=== PATIENT | male | born 1955 | race Caucasian/White ===

== ENCOUNTER 2017-07-12 21:24 | Inpatient (IN) | payer MEDICAID ==
[~2017-07-12] VITALS: Ht 182.9 cm; Wt 111.0 kg
[~2017-07-12 21:24] MED LIST: CITA10TA71 PO; LISI-604 PO; LORA10TA7 PO; MONT10TA21 PO; PANT-47 PO; PRED5TAB PO; SPIIN IH; UMEC1DIS INH
[2017-07-12] MEDS ORDERED: acetaminophen 325mg tablet PO STA (21:53)
[2017-07-12] MEDS ORDERED: levoFLOXACIN-Levaquin 750MG/D5 150 ML IV ONE (21:55)
[2017-07-12] MEDS ORDERED: vancomycin/NS 1 GM ADD-VANTAGE 250 ML IV ONE (21:55)
[2017-07-12] MEDS ORDERED: normal saline 1000ML IV soln IV ONE (21:55)
[2017-07-12] MEDS ORDERED: morphine 4 MG/ML inj SYRINge IV ONE (22:10)
[2017-07-12] MEDS ORDERED: NORepinephrine 1 mg/ml inj IV ONE (23:00)
[2017-07-12] MEDS ORDERED: normal saline 1000ml 1,000 ML IV ONE (23:25)
[2017-07-12 23:41] LABS: BASOPHILS % (AUTO) 0.1 % (0-1); EOSINOPHILS % (AUTO) 0 % (0-6); HEMATOCRIT 28.8 % (42.0-52.0); HEMOGLOBIN 9.6 g/dl (14.0-17.9); LYMPHOCYTES # (AUTO) 1.1 X10'3 (1.1-4.8); MEAN CORPUSCULAR HEMOGLOBIN 28.2 PG (27.0-31.0); MEAN CORPUSCULAR HGB CONC 33.3 % (33.0-36.5); MEAN CORPUSCULAR VOLUME 84.5 FL (78-98); MEAN PLATELET VOLUME 7.8 FL (7.4-10.4); MONOCYTES # (AUTO) 0.1 X10'3 (0-0.9); MONOCYTES % (AUTO) 1.2 % (2-12); NEUTROPHILS % (AUTO) 87.7 % (42-75); PLATELET COUNT 198 X10'3 (140-440); RED BLOOD COUNT 3.41 X10'6 (4.70-6.10); RED CELL DISTRIBUTION WIDTH 17.5 % (11.5-14.5); WHITE BLOOD COUNT 10.2 X10'3 (4.5-11.0)
[2017-07-12 23:54] LABS: INR 1.1 INR; PARTIAL THROMBOPLASTIN TIME 29 SECONDS (22-32); PROTHROMBIN TIME 11.2 SECONDS (9.0-12.0)
[2017-07-13] VITALS (27 sets, daily range): BP systolic 63–128; BP diastolic 55–82
[2017-07-13] LABS: ALANINE AMINOTRANSFERASE 129 U/L (12-78); ALBUMIN 2.1 G/DL (3.4-5.0); ALBUMIN/GLOBULIN RATIO 0.6 (1.1-1.5); ALKALINE PHOSPHATASE 72 IU/L (46-116); ANION GAP 7 (8-16); ASPARTATE AMINO TRANSFERASE 91 U/L (10-37); BILIRUBIN,TOTAL 0.4 MG/DL (0.1-1.0); BLOOD UREA NITROGEN 34 MG/DL (7-18); BUN/CREATININE RATIO 16.6 (5.4-32.0); CALCIUM 8.5 MG/DL (8.5-10.1); CHLORIDE 107 MMOL/L (99-107); CREATININE 2.05 MG/DL (0.60-1.10); GLUCOSE 125 MG/DL (70-104); MAGNESIUM 1.6 MG/DL (1.5-2.4); POTASSIUM 4.8 MMOL/L (3.5-5.1); SODIUM 144 MMOL/L (135-145); TOTAL CARBON DIOXIDE 30.2 MMOL/L (24-32); TOTAL PROTEIN 5.7 G/DL (6.4-8.2); eGFR 33 ML/MIN
[2017-07-13] MEDS: NORepinephrine 8mg/ 250ml NS 250 ML IV SCH ×2 (00:04→05:55)
[2017-07-13] MEDS ORDERED: hydrocortisone sod succ/PF 100mg/2ml inj. IV STA (00:19)
[2017-07-13 01:20] LABS: CLARITY,URINE CLOUDY (Clear); COLOR,URINE YELLOW (Yellow); GLUCOSE, URINE NEGATIVE (Neg); KETONES,URINE TRACE mg/dl (Neg); LEUKOCYTE ESTERASE ,URINE TRACE (Neg); OCCULT BLOOD,URINE LARGE (Neg); PROTEIN,URINE >=300 mg/dl (Neg); UROBILINOGEN,URINE 0.2 E.U/dL (0.2-1.0)
[2017-07-13] MEDS ORDERED: vasopressin inj. 60 UNIT in normal saline 100ml IV soln 97 ML IV SCH (01:20)
[2017-07-13] MEDS ORDERED: vasoPRESSIN 20 units/ml inj. ONE (01:26)
[2017-07-13] MEDS ORDERED: normal saline 100ml IV soln 100 ML ONE (01:26)
[2017-07-13 01:27] LABS: NITRITES, URINE NEGATIVE (Neg); UA COLLECTION TYPE FOLEY CATH
[2017-07-13 01:28] LABS: WBC,URINE 30-50 /HPF (0-4)
[2017-07-13 01:29] LABS: BACTERIA,URINE FEW /HPF (Neg); SQUAMOUS EPITHELIAL CELL,UR FEW /LPF (FEW); WBC CLUMPS,URINE FEW /HPF (NEGATIVE)
[2017-07-13] MEDS: K, MAG and/or Phos replacement - Verify level? MC SCH ×2 (01:35→08:00)
[2017-07-13] MEDS ORDERED: potassium Cl 20 mEq SR tablet PO PRN ×2 (01:35)
[2017-07-13] MEDS ORDERED: ondansetron/PF 4mg/2ml inj IV PRN (01:35)
[2017-07-13] MEDS ORDERED: acetaminophen 325mg tablet PO PRN ×2 (01:35)
[2017-07-13] MEDS ORDERED: magnesium hydroxide 30ml (MOM) UD suspension PO PRN (01:35)
[2017-07-13] MEDS ORDERED: ipratropium 0.5 MG/2.5ML nebule NEB PRN (01:35)
[2017-07-13] MEDS ORDERED: DOCU-28 PO (03:35)
[2017-07-13] MEDS ORDERED: GABA-532 PO (03:35)
[2017-07-13] MEDS ORDERED: OXYC10TA47 PO (03:35)
[2017-07-13] MEDS ORDERED: FURO-150 PO (03:35)
[2017-07-13] MEDS ORDERED: SENN-161 PO (03:35)
[2017-07-13] MEDS: normal saline 1000ml 1,000 ML IV SCH ×4 (03:44→21:32)
[2017-07-13 04:22] LABS: HEMOGLOBIN A1C 7.5 % (4.5-6.2)
[2017-07-13] MEDS ORDERED: morphine 4 MG/ML inj SYRINge ONE (04:28)
[2017-07-13 04:41] LABS: LACTIC SEPSIS 2.3 MMOL/L (0.4-2.0)
[2017-07-13 04:55] LABS: % IRON SATURATION 6 % (11-46); IRON 10 UG/DL (53-167); TOTAL IRON BINDING CAPACITY 155 UG/DL (259-388)
[2017-07-13] MEDS: morphine 4 MG/ML inj SYRINge IV PRN ×3 (04:56→08:29)
[2017-07-13] MEDS ORDERED: glucagon, human recombinant 1mg kit SUBCUT PRN (05:35)
[2017-07-13] MEDS ORDERED: dextrose 50%-water 50ml dispensing syringe IV PRN ×2 (05:35)
[2017-07-13] MEDS ORDERED: dextrose ORAL solution 15 GM/59 ML bottle PO PRN ×2 (05:35)
[2017-07-13] MEDS ORDERED: MESSAGE TO PHARMACY PO ONE (05:35)
[2017-07-13] MEDS ORDERED: famotidine/PF 10 mg/ml inj IV SCH (08:00)
[2017-07-13] MEDS ORDERED: ipratropium/albuterol 3ml nebule IH SCH (08:00)
[2017-07-13] MEDS: ipratropium 0.5 MG/2.5ML nebule IH SCH ×3 (08:00→20:58)
[2017-07-13] MEDS ORDERED: vancomycin/NS 1 GM ADD-VANTAGE 250 ML IV SCH (08:00)
[2017-07-13] MEDS: docusate sod 100mg capsule PO SCH ×2 (08:28→20:12)
[2017-07-13] MEDS: montelukast 10mg tablet PO SCH (08:28)
[2017-07-13] MEDS: loratadine 10mg tablet PO SCH (08:28)
[2017-07-13] MEDS: pantoprazole 40mg Tablet.DR PO SCH (08:28)
[2017-07-13] MEDS: predniSONE 5mg tablet PO SCH ×2 (08:29→20:14)
[2017-07-13] MEDS: CITALOpram 10mg tablet PO SCH (08:29)
[2017-07-13] MEDS: insulin Lispro (HumaLOG) vial - multi-dose SQ SCH ×3 (10:04→20:19)
[2017-07-13] MEDS ORDERED: morphine/NS 5 mg/ml CADD 100 ML IV SCH (11:00)
[2017-07-13 11:43] LABS: BASOPHILS % (AUTO) 0 % (0-1); EOSINOPHILS % (AUTO) 0.2 % (0-6); HEMATOCRIT 28.2 % (42.0-52.0); HEMOGLOBIN 9.6 g/dl (14.0-17.9); LYMPHOCYTES # (AUTO) 0.2 X10'3 (1.1-4.8); LYMPHOCYTES % (AUTO) 1.2 % (21-51); MEAN CORPUSCULAR HEMOGLOBIN 28.4 PG (27.0-31.0); MEAN CORPUSCULAR VOLUME 83.7 FL (78-98); MEAN PLATELET VOLUME 7.7 FL (7.4-10.4); MONOCYTES # (AUTO) 0.2 X10'3 (0-0.9); MONOCYTES % (AUTO) 1.5 % (2-12); NEUTROPHILS # (AUTO) 13.8 X10'3 (1.8-7.7); NEUTROPHILS % (AUTO) 97.1 % (42-75); PLATELET COUNT 215 X10'3 (140-440); RED BLOOD COUNT 3.37 X10'6 (4.70-6.10); WHITE BLOOD COUNT 14.2 X10'3 (4.5-11.0)
[2017-07-13 12:09] LABS: ANISOCYTOSIS 2+; PLATELET ESTIMATE NORMAL; TOTAL CELLS COUNTED 100
[2017-07-13 12:10] LABS: TOXIC GRANULATION 1+
[2017-07-13] MEDS: ipratropium/albuterol 3ml nebule NEB SCH ×2 (12:24→19:00)
[2017-07-13 17:01] LABS: TOTAL PROTEIN,URINE RANDOM 92.3 MG/DL
[2017-07-13] MEDS: triamcinolone acet 0.1% cream 15gm TP SCH (20:12)
[2017-07-13] MEDS: gabapentin 300mg capsule PO SCH (20:12)
[2017-07-13] MEDS: lactobacillus rhamnosus 10,000 MMU CELLS/CAPSULE PO SCH (20:12)
[2017-07-13] MEDS: sodium ferric gluc complex inj 125 MG in normal saline 100ml IV soln 100 ML IV SCH (20:13)
[2017-07-13] MEDS: insulin glargine (Lantus) pen - multi-dose SQ SCH (21:32)
[2017-07-13] MEDS: MORPHINE CADD 5 MG/ML 50ML IV SCH (23:00)
[2017-07-14] VITALS (25 sets, daily range): BP systolic 76–130; BP diastolic 58–90
[2017-07-14] MEDS: MORPHINE CADD 5 MG/ML 50ML IV SCH ×12 (01:00→23:00)
[2017-07-14 02:54] LABS: BASOPHILS # (AUTO) 0.1 X10'3 (0-0.2); BASOPHILS % (AUTO) 1.2 % (0-1); EOSINOPHILS % (AUTO) 0.2 % (0-6); HEMATOCRIT 25.2 % (42.0-52.0); HEMOGLOBIN 8.6 g/dl (14.0-17.9); LYMPHOCYTES # (AUTO) 0.3 X10'3 (1.1-4.8); LYMPHOCYTES % (AUTO) 2.7 % (21-51); MEAN CORPUSCULAR HEMOGLOBIN 28.6 PG (27.0-31.0); MEAN CORPUSCULAR VOLUME 84.3 FL (78-98); MEAN PLATELET VOLUME 7.1 FL (7.4-10.4); MONOCYTES # (AUTO) 0.2 X10'3 (0-0.9); MONOCYTES % (AUTO) 2.2 % (2-12); NEUTROPHILS # (AUTO) 9.2 X10'3 (1.8-7.7); NEUTROPHILS % (AUTO) 93.7 % (42-75); PLATELET COUNT 143 X10'3 (140-440); RED BLOOD COUNT 2.99 X10'6 (4.70-6.10); RED CELL DISTRIBUTION WIDTH 17.4 % (11.5-14.5); WHITE BLOOD COUNT 9.8 X10'3 (4.5-11.0)
[2017-07-14] MEDS: ipratropium 0.5 MG/2.5ML nebule IH SCH ×4 (02:55→19:48)
[2017-07-14 03:05] LABS: INR 1.1 INR; PARTIAL THROMBOPLASTIN TIME 34 SECONDS (22-32); PROTHROMBIN TIME 11.5 SECONDS (9.0-12.0)
[2017-07-14 03:08] LABS: ALANINE AMINOTRANSFERASE 108 U/L (12-78); ALBUMIN 1.6 G/DL (3.4-5.0); ALBUMIN/GLOBULIN RATIO 0.4 (1.1-1.5); ALKALINE PHOSPHATASE 59 IU/L (46-116); ANION GAP 5 (8-16); ASPARTATE AMINO TRANSFERASE 61 U/L (10-37); BILIRUBIN,TOTAL 0.2 MG/DL (0.1-1.0); BLOOD UREA NITROGEN 34 MG/DL (7-18); BUN/CREATININE RATIO 24.3 (5.4-32.0); CALCIUM 8.9 MG/DL (8.5-10.1); CHLORIDE 108 MMOL/L (99-107); GLUCOSE 113 MG/DL (70-104); MAGNESIUM 1.7 MG/DL (1.5-2.4); PHOSPHORUS 3.2 MG/DL (2.3-4.5); POTASSIUM 4.3 MMOL/L (3.5-5.1); SODIUM 142 MMOL/L (135-145); TOTAL CARBON DIOXIDE 28.8 MMOL/L (24-32); TOTAL PROTEIN 5.3 G/DL (6.4-8.2); eGFR 51 ML/MIN
[2017-07-14 03:21] LABS: NUCLEATED RED BLOOD CELLS 1 /100WBC (0-0); TOTAL CELLS COUNTED 100
[2017-07-14 03:22] LABS: ANISOCYTOSIS 1+; PLATELET ESTIMATE NORMAL; TOXIC GRANULATION 1+
[2017-07-14] MEDS: normal saline 1000ml 1,000 ML IV SCH ×3 (04:10→17:31)
[2017-07-14] MEDS: K, MAG and/or Phos replacement - Verify level? MC SCH (08:00)
[2017-07-14] MEDS: furosemide 20MG tablet PO SCH (08:00)
[2017-07-14] MEDS: lisinopril 5mg tablet PO SCH (08:00)
[2017-07-14] MEDS: NORepinephrine 8mg/ 250ml NS 250 ML IV SCH (08:22)
[2017-07-14] MEDS: enoxaparin 40mg/0.4ml syringe SUBCUT SCH (08:42)
[2017-07-14] MEDS: loratadine 10mg tablet PO SCH (08:43)
[2017-07-14] MEDS: lactobacillus rhamnosus 10,000 MMU CELLS/CAPSULE PO SCH ×2 (08:43→19:36)
[2017-07-14] MEDS: CITALOpram 10mg tablet PO SCH (08:43)
[2017-07-14] MEDS: predniSONE 5mg tablet PO SCH ×2 (08:43→19:36)
[2017-07-14] MEDS: triamcinolone acet 0.1% cream 15gm TP SCH ×2 (08:43→19:37)
[2017-07-14] MEDS: pantoprazole 40mg Tablet.DR PO SCH (08:43)
[2017-07-14] MEDS: montelukast 10mg tablet PO SCH (08:44)
[2017-07-14] MEDS: sennosides 8.6mg tablet PO SCH (08:44)
[2017-07-14] MEDS: docusate sod 100mg capsule PO SCH ×2 (08:45→19:37)
[2017-07-14] MEDS: sodium ferric gluc complex inj 125 MG in normal saline 100ml IV soln 100 ML IV SCH (08:47)
[2017-07-14] MEDS: insulin Lispro (HumaLOG) vial - multi-dose SQ SCH ×3 (08:54→20:42)
[2017-07-14] MEDS: oseltamivir phos 75mg capsule PO SCH (19:37)
[2017-07-14] MEDS: insulin glargine (Lantus) pen - multi-dose SQ SCH (20:41)
[2017-07-14] MEDS: gabapentin 300mg capsule PO SCH (20:42)
[2017-07-14] MEDS ORDERED: levoFLOXACIN-Levaquin 750MG/D5 150 ML IV SCH (21:00)
[2017-07-15] VITALS (30 sets, daily range): BP systolic 100–143; BP diastolic 68–99
[2017-07-15] MEDS: MORPHINE CADD 5 MG/ML 50ML IV SCH ×12 (01:00→23:00)
[2017-07-15 02:25] LABS: BASOPHILS # (AUTO) 0.1 X10'3 (0-0.2); BASOPHILS % (AUTO) 0.6 % (0-1); EOSINOPHILS # (AUTO) 0.1 X10'3 (0-0.9); EOSINOPHILS % (AUTO) 1.3 % (0-6); HEMATOCRIT 23.3 % (42.0-52.0); HEMOGLOBIN 7.9 g/dl (14.0-17.9); LYMPHOCYTES # (AUTO) 0.2 X10'3 (1.1-4.8); LYMPHOCYTES % (AUTO) 2.1 % (21-51); MEAN CORPUSCULAR HEMOGLOBIN 28.5 PG (27.0-31.0); MEAN CORPUSCULAR VOLUME 83.8 FL (78-98); MEAN PLATELET VOLUME 7.3 FL (7.4-10.4); MONOCYTES # (AUTO) 0.2 X10'3 (0-0.9); MONOCYTES % (AUTO) 2.3 % (2-12); NEUTROPHILS # (AUTO) 7.5 X10'3 (1.8-7.7); NEUTROPHILS % (AUTO) 93.7 % (42-75); PLATELET COUNT 151 X10'3 (140-440); RED BLOOD COUNT 2.78 X10'6 (4.70-6.10); RED CELL DISTRIBUTION WIDTH 17.2 % (11.5-14.5)
[2017-07-15 02:41] LABS: INR 1.1 INR; PARTIAL THROMBOPLASTIN TIME 40 SECONDS (22-32)
[2017-07-15 02:42] LABS: ALANINE AMINOTRANSFERASE 117 U/L (12-78); ALBUMIN 1.4 G/DL (3.4-5.0); ALBUMIN/GLOBULIN RATIO 0.4 (1.1-1.5); ALKALINE PHOSPHATASE 74 IU/L (46-116); ANION GAP 5 (8-16); ASPARTATE AMINO TRANSFERASE 81 U/L (10-37); BILIRUBIN,TOTAL 0.3 MG/DL (0.1-1.0); BLOOD UREA NITROGEN 27 MG/DL (7-18); CALCIUM 8.9 MG/DL (8.5-10.1); CHLORIDE 109 MMOL/L (99-107); CREATININE 1.04 MG/DL (0.60-1.10); GLUCOSE 140 MG/DL (70-104); MAGNESIUM 1.6 MG/DL (1.5-2.4); PHOSPHORUS 3.2 MG/DL (2.3-4.5); POTASSIUM 4.7 MMOL/L (3.5-5.1); SODIUM 142 MMOL/L (135-145); TOTAL PROTEIN 5.4 G/DL (6.4-8.2); eGFR 72 ML/MIN
[2017-07-15 02:59] LABS: VANCOMYCIN,TROUGH 27.4 UG/ML (6.0-14.0)
[2017-07-15] MEDS: normal saline 1000ml 1,000 ML IV SCH ×2 (03:22→07:17)
[2017-07-15] MEDS: ipratropium 0.5 MG/2.5ML nebule IH SCH ×4 (03:27→20:58)
[2017-07-15] MEDS ORDERED: VANCOMYCIN LEVEL IV ONE (03:30)
[2017-07-15] MEDS: K, MAG and/or Phos replacement - Verify level? MC SCH (08:00)
[2017-07-15] MEDS: sodium ferric gluc complex inj 125 MG in normal saline 100ml IV soln 100 ML IV SCH (08:29)
[2017-07-15] MEDS: triamcinolone acet 0.1% cream 15gm TP SCH ×2 (08:29→19:55)
[2017-07-15] MEDS: predniSONE 5mg tablet PO SCH ×2 (08:30→19:55)
[2017-07-15] MEDS: pantoprazole 40mg Tablet.DR PO SCH (08:30)
[2017-07-15] MEDS: docusate sod 100mg capsule PO SCH ×2 (08:31→19:54)
[2017-07-15] MEDS: oseltamivir phos 75mg capsule PO SCH (08:31)
[2017-07-15] MEDS: montelukast 10mg tablet PO SCH (08:31)
[2017-07-15] MEDS: loratadine 10mg tablet PO SCH (08:31)
[2017-07-15] MEDS: lactobacillus rhamnosus 10,000 MMU CELLS/CAPSULE PO SCH ×2 (08:32→19:54)
[2017-07-15] MEDS: CITALOpram 10mg tablet PO SCH (08:32)
[2017-07-15] MEDS: lisinopril 5mg tablet PO SCH (08:32)
[2017-07-15] MEDS: sennosides 8.6mg tablet PO SCH (08:32)
[2017-07-15] MEDS: furosemide 20MG tablet PO SCH (08:32)
[2017-07-15] MEDS: enoxaparin 40mg/0.4ml syringe SUBCUT SCH (08:33)
[2017-07-15] MEDS: insulin Lispro (HumaLOG) vial - multi-dose SQ SCH ×3 (08:51→22:04)
[2017-07-15] MEDS ORDERED: NORepinephrine 8mg/ 250ml NS 250 ML IV SCH (12:25)
[2017-07-15] MEDS ORDERED: vasopressin inj. 60 UNIT in normal saline 100ml IV soln 97 ML IV SCH (12:25)
[2017-07-15] MEDS ORDERED: cefepime 1GM/NS ADD-VANTAGE 100 ML IV SCH (12:50)
[2017-07-15 13:27] LABS: HEP A AB, IGM Negative (Negative); HEP B CORE AB, IGM Negative (Negative); HEPATITIS C ANTIBODY <0.1 s/co ratio (0.0-0.9)
[2017-07-15] MEDS: cefepime inj. 1 GM in dextrose 5%-water 50ml 100 ML IV SCH (13:45)
[2017-07-15] MEDS ORDERED: vancomycin/NS 1 GM ADD-VANTAGE 250 ML IV SCH (16:00)
[2017-07-15] MEDS: gabapentin 300mg capsule PO SCH (22:01)
[2017-07-15] MEDS: insulin glargine (Lantus) pen - multi-dose SQ SCH (22:03)
[2017-07-16] VITALS (11 sets, daily range): BP systolic 101–135; BP diastolic 68–94
[2017-07-16] MEDS: MORPHINE CADD 5 MG/ML 50ML IV SCH ×12 (01:00→23:00)
[2017-07-16 03:05] LABS: BASOPHILS % (AUTO) 0 % (0-1); EOSINOPHILS # (AUTO) 0.1 X10'3 (0-0.9); EOSINOPHILS % (AUTO) 1.3 % (0-6); HEMOGLOBIN 8.9 g/dl (14.0-17.9); LYMPHOCYTES # (AUTO) 0.2 X10'3 (1.1-4.8); LYMPHOCYTES % (AUTO) 3.6 % (21-51); MEAN CORPUSCULAR HEMOGLOBIN 28.5 PG (27.0-31.0); MEAN CORPUSCULAR VOLUME 83.8 FL (78-98); MEAN PLATELET VOLUME 7.1 FL (7.4-10.4); MONOCYTES # (AUTO) 0.3 X10'3 (0-0.9); NEUTROPHILS % (AUTO) 91.1 % (42-75); PLATELET COUNT 159 X10'3 (140-440); RED BLOOD COUNT 3.11 X10'6 (4.70-6.10); RED CELL DISTRIBUTION WIDTH 16.7 % (11.5-14.5); WHITE BLOOD COUNT 6.6 X10'3 (4.5-11.0)
[2017-07-16 03:17] LABS: PARTIAL THROMBOPLASTIN TIME 32 SECONDS (22-32); PROTHROMBIN TIME 10.5 SECONDS (9.0-12.0)
[2017-07-16 03:25] LABS: ALANINE AMINOTRANSFERASE 135 U/L (12-78); ALBUMIN 1.5 G/DL (3.4-5.0); ALBUMIN/GLOBULIN RATIO 0.4 (1.1-1.5); ALKALINE PHOSPHATASE 118 IU/L (46-116); ANION GAP 5 (8-16); ASPARTATE AMINO TRANSFERASE 87 U/L (10-37); BILIRUBIN,TOTAL 0.3 MG/DL (0.1-1.0); BLOOD UREA NITROGEN 26 MG/DL (7-18); BUN/CREATININE RATIO 27.4 (5.4-32.0); CALCIUM 8.9 MG/DL (8.5-10.1); CHLORIDE 108 MMOL/L (99-107); CREATININE 0.95 MG/DL (0.60-1.10); GLUCOSE 124 MG/DL (70-104); MAGNESIUM 1.4 MG/DL (1.5-2.4); PHOSPHORUS 3.4 MG/DL (2.3-4.5); POTASSIUM 4.2 MMOL/L (3.5-5.1); SODIUM 144 MMOL/L (135-145); TOTAL CARBON DIOXIDE 30.8 MMOL/L (24-32); TOTAL PROTEIN 5.5 G/DL (6.4-8.2); eGFR 80 ML/MIN
[2017-07-16] MEDS: ipratropium 0.5 MG/2.5ML nebule IH SCH ×4 (04:38→20:16)
[2017-07-16] MEDS: lactobacillus rhamnosus 10,000 MMU CELLS/CAPSULE PO SCH ×2 (07:42→20:16)
[2017-07-16] MEDS: furosemide 20MG tablet PO SCH (07:42)
[2017-07-16] MEDS: levoFLOXACIN 750MG TABLET PO SCH (07:42)
[2017-07-16] MEDS: loratadine 10mg tablet PO SCH (07:43)
[2017-07-16] MEDS: lisinopril 5mg tablet PO SCH (07:43)
[2017-07-16] MEDS: predniSONE 5mg tablet PO SCH ×2 (07:43→20:15)
[2017-07-16] MEDS: CITALOpram 10mg tablet PO SCH (07:44)
[2017-07-16] MEDS: docusate sod 100mg capsule PO SCH ×2 (07:46→20:15)
[2017-07-16] MEDS: montelukast 10mg tablet PO SCH (07:46)
[2017-07-16] MEDS: pantoprazole 40mg Tablet.DR PO SCH (07:46)
[2017-07-16] MEDS: sennosides 8.6mg tablet PO SCH (07:46)
[2017-07-16] MEDS: enoxaparin 40mg/0.4ml syringe SUBCUT SCH (07:47)
[2017-07-16] MEDS: K, MAG and/or Phos replacement - Verify level? MC SCH (08:00)
[2017-07-16] MEDS: cefepime inj. 1 GM in dextrose 5%-water 50ml 100 ML IV SCH (08:31)
[2017-07-16] MEDS: magnesium Cl slow-release 64mg tablet PO PRN ×2 (09:38→20:49)
[2017-07-16] MEDS: sodium ferric gluc complex inj 125 MG in normal saline 100ml IV soln 100 ML IV SCH (09:39)
[2017-07-16] MEDS: insulin Lispro (HumaLOG) vial - multi-dose SQ SCH ×3 (10:26→20:22)
[2017-07-16] MEDS: triamcinolone acet 0.1% cream 15gm TP SCH ×2 (13:42→20:17)
[2017-07-16] MEDS: gabapentin 300mg capsule PO SCH (20:15)
[2017-07-16] MEDS: insulin glargine (Lantus) pen - multi-dose SQ SCH (21:00)
[2017-07-17] MEDS: MORPHINE CADD 5 MG/ML 50ML IV SCH ×12 (01:00→23:00)
[2017-07-17 03:00] VITALS: BP 131/91
[2017-07-17] MEDS ORDERED: VANCOMYCIN LEVEL IV ONE (03:30)
[2017-07-17 03:31] LABS: BASOPHILS % (AUTO) 0 % (0-1); EOSINOPHILS % (AUTO) 0.7 % (0-6); HEMATOCRIT 30.8 % (42.0-52.0); HEMOGLOBIN 10.5 g/dl (14.0-17.9); LYMPHOCYTES # (AUTO) 0.2 X10'3 (1.1-4.8); LYMPHOCYTES % (AUTO) 3.4 % (21-51); MEAN CORPUSCULAR HEMOGLOBIN 28.5 PG (27.0-31.0); MEAN CORPUSCULAR HGB CONC 34.1 % (33.0-36.5); MEAN CORPUSCULAR VOLUME 83.7 FL (78-98); MEAN PLATELET VOLUME 6.9 FL (7.4-10.4); MONOCYTES # (AUTO) 0.1 X10'3 (0-0.9); MONOCYTES % (AUTO) 1.9 % (2-12); NEUTROPHILS # (AUTO) 6.2 X10'3 (1.8-7.7); PLATELET COUNT 182 X10'3 (140-440); RED BLOOD COUNT 3.68 X10'6 (4.70-6.10); RED CELL DISTRIBUTION WIDTH 16.7 % (11.5-14.5); WHITE BLOOD COUNT 6.6 X10'3 (4.5-11.0)
[2017-07-17] MEDS: ipratropium 0.5 MG/2.5ML nebule IH SCH ×4 (03:39→20:10)
[2017-07-17 03:44] LABS: INR 1.1 INR; PARTIAL THROMBOPLASTIN TIME 30 SECONDS (22-32); PROTHROMBIN TIME 10.9 SECONDS (9.0-12.0)
[2017-07-17 03:46] LABS: ALANINE AMINOTRANSFERASE 123 U/L (12-78); ALBUMIN 1.8 G/DL (3.4-5.0); ALBUMIN/GLOBULIN RATIO 0.4 (1.1-1.5); ALKALINE PHOSPHATASE 137 IU/L (46-116); ANION GAP 8 (8-16); ASPARTATE AMINO TRANSFERASE 50 U/L (10-37); BILIRUBIN,TOTAL 0.3 MG/DL (0.1-1.0); BLOOD UREA NITROGEN 28 MG/DL (7-18); BUN/CREATININE RATIO 25.9 (5.4-32.0); CALCIUM 9.1 MG/DL (8.5-10.1); CHLORIDE 106 MMOL/L (99-107); CREATININE 1.08 MG/DL (0.60-1.10); GLUCOSE 117 MG/DL (70-104); MAGNESIUM 1.6 MG/DL (1.5-2.4); PHOSPHORUS 3.5 MG/DL (2.3-4.5); SODIUM 146 MMOL/L (135-145); TOTAL CARBON DIOXIDE 32.2 MMOL/L (24-32); TOTAL PROTEIN 6.2 G/DL (6.4-8.2); VANCOMYCIN,TROUGH 6.3 UG/ML (6.0-14.0); eGFR 69 ML/MIN
[2017-07-17 06:00] VITALS: BP 139/93
[2017-07-17] MEDS: K, MAG and/or Phos replacement - Verify level? MC SCH (08:00)
[2017-07-17] MEDS: sennosides 8.6mg tablet PO SCH (08:31)
[2017-07-17] MEDS: loratadine 10mg tablet PO SCH (08:31)
[2017-07-17] MEDS: pantoprazole 40mg Tablet.DR PO SCH (08:31)
[2017-07-17] MEDS: lactobacillus rhamnosus 10,000 MMU CELLS/CAPSULE PO SCH ×2 (08:31→20:11)
[2017-07-17] MEDS: docusate sod 100mg capsule PO SCH ×2 (08:31→20:11)
[2017-07-17] MEDS: furosemide 20MG tablet PO SCH (08:32)
[2017-07-17] MEDS: predniSONE 5mg tablet PO SCH ×2 (08:32→20:11)
[2017-07-17] MEDS: lisinopril 5mg tablet PO SCH (08:32)
[2017-07-17] MEDS: montelukast 10mg tablet PO SCH (08:33)
[2017-07-17] MEDS: CITALOpram 10mg tablet PO SCH (08:33)
[2017-07-17] MEDS: triamcinolone acet 0.1% cream 15gm TP SCH ×2 (08:34→20:11)
[2017-07-17] MEDS: cefepime inj. 1 GM in dextrose 5%-water 50ml 50 ML IV SCH (08:35)
[2017-07-17] MEDS: enoxaparin 40mg/0.4ml syringe SUBCUT SCH (08:35)
[2017-07-17] MEDS: insulin Lispro (HumaLOG) vial - multi-dose SQ SCH ×3 (08:43→19:09)
[2017-07-17 09:39] LABS: OCCULT BLOOD STOOL NEGATIVE (Neg)
[2017-07-17 11:00] VITALS: BP 119/86
[2017-07-17 15:00] VITALS: BP 122/80
[2017-07-17 19:00] VITALS: BP 124/81
[2017-07-17] MEDS: gabapentin 300mg capsule PO SCH (20:11)
[2017-07-17] MEDS: insulin glargine (Lantus) pen - multi-dose SQ SCH (22:14)
[2017-07-17 23:00] VITALS: BP 105/72
[2017-07-18] MEDS: MORPHINE CADD 5 MG/ML 50ML IV SCH ×6 (01:00→11:00)
[2017-07-18 03:00] VITALS: BP 125/80
[2017-07-18] MEDS: ipratropium 0.5 MG/2.5ML nebule IH SCH ×4 (03:06→21:26)
[2017-07-18 05:27] LABS: BASOPHILS % (AUTO) 0.2 % (0-1); EOSINOPHILS # (AUTO) 0.1 X10'3 (0-0.9); EOSINOPHILS % (AUTO) 1.5 % (0-6); HEMATOCRIT 31.2 % (42.0-52.0); HEMOGLOBIN 10.5 g/dl (14.0-17.9); LYMPHOCYTES # (AUTO) 0.3 X10'3 (1.1-4.8); MEAN CORPUSCULAR HEMOGLOBIN 28.4 PG (27.0-31.0); MEAN CORPUSCULAR HGB CONC 33.6 % (33.0-36.5); MEAN CORPUSCULAR VOLUME 84.6 FL (78-98); MEAN PLATELET VOLUME 6.9 FL (7.4-10.4); MONOCYTES # (AUTO) 0.3 X10'3 (0-0.9); MONOCYTES % (AUTO) 4.4 % (2-12); NEUTROPHILS # (AUTO) 5.5 X10'3 (1.8-7.7); NEUTROPHILS % (AUTO) 88.9 % (42-75); PLATELET COUNT 190 X10'3 (140-440); RED BLOOD COUNT 3.69 X10'6 (4.70-6.10); RED CELL DISTRIBUTION WIDTH 16.9 % (11.5-14.5); WHITE BLOOD COUNT 6.2 X10'3 (4.5-11.0)
[2017-07-18 05:44] LABS: INR 1.1 INR; PARTIAL THROMBOPLASTIN TIME 28 SECONDS (22-32)
[2017-07-18 05:55] LABS: ALANINE AMINOTRANSFERASE 95 U/L (12-78); ALBUMIN 1.8 G/DL (3.4-5.0); ALBUMIN/GLOBULIN RATIO 0.4 (1.1-1.5); ALKALINE PHOSPHATASE 143 IU/L (46-116); ANION GAP 6 (8-16); ASPARTATE AMINO TRANSFERASE 41 U/L (10-37); BILIRUBIN,TOTAL 0.3 MG/DL (0.1-1.0); BLOOD UREA NITROGEN 28 MG/DL (7-18); BUN/CREATININE RATIO 27.2 (5.4-32.0); CHLORIDE 105 MMOL/L (99-107); CREATININE 1.03 MG/DL (0.60-1.10); GLUCOSE 242 MG/DL (70-104); MAGNESIUM 1.8 MG/DL (1.5-2.4); PHOSPHORUS 3.2 MG/DL (2.3-4.5); POTASSIUM 4.3 MMOL/L (3.5-5.1); SODIUM 144 MMOL/L (135-145); TOTAL CARBON DIOXIDE 32.6 MMOL/L (24-32); eGFR 73 ML/MIN
[2017-07-18 06:30] VITALS: BP 130/91
[2017-07-18] MEDS: K, MAG and/or Phos replacement - Verify level? MC SCH (08:00)
[2017-07-18] MEDS: predniSONE 5mg tablet PO SCH ×2 (09:07→20:12)
[2017-07-18] MEDS: montelukast 10mg tablet PO SCH (09:07)
[2017-07-18] MEDS: lisinopril 5mg tablet PO SCH (09:07)
[2017-07-18] MEDS: sennosides 8.6mg tablet PO SCH (09:08)
[2017-07-18] MEDS: CITALOpram 10mg tablet PO SCH (09:08)
[2017-07-18] MEDS: lactobacillus rhamnosus 10,000 MMU CELLS/CAPSULE PO SCH ×2 (09:08→20:11)
[2017-07-18] MEDS: loratadine 10mg tablet PO SCH (09:09)
[2017-07-18] MEDS: levoFLOXACIN 750MG TABLET PO SCH (09:09)
[2017-07-18] MEDS: furosemide 20MG tablet PO SCH (09:09)
[2017-07-18] MEDS: docusate sod 100mg capsule PO SCH ×2 (09:09→20:11)
[2017-07-18] MEDS: pantoprazole 40mg Tablet.DR PO SCH (09:09)
[2017-07-18] MEDS: cefepime inj. 1 GM in dextrose 5%-water 50ml 50 ML IV SCH (09:10)
[2017-07-18] MEDS: enoxaparin 40mg/0.4ml syringe SUBCUT SCH (09:10)
[2017-07-18] MEDS: triamcinolone acet 0.1% cream 15gm TP SCH ×2 (09:11→20:00)
[2017-07-18] MEDS: insulin Lispro (HumaLOG) vial - multi-dose SQ SCH ×3 (09:31→20:15)
[2017-07-18 10:30] VITALS: BP 129/87
[2017-07-18 15:00] VITALS: BP 121/82
[2017-07-18] MEDS ORDERED: CADD PCA waste documentation MC SCH (16:35)
[2017-07-18 19:00] VITALS: BP 125/81
[2017-07-18] MEDS: gabapentin 300mg capsule PO SCH (20:11)
[2017-07-18] MEDS: insulin glargine (Lantus) pen - multi-dose SQ SCH (21:00)
[2017-07-18] MEDS: HYDROcodone/acetaminophen 10/325mg tab PO PRN (22:02)
[2017-07-18 23:00] VITALS: BP 110/74
[2017-07-19 03:00] VITALS: BP 102/69
[2017-07-19] MEDS: ipratropium 0.5 MG/2.5ML nebule IH SCH ×4 (03:27→20:00)
[2017-07-19] MEDS: HYDROcodone/acetaminophen 10/325mg tab PO PRN ×3 (03:46→19:17)
[2017-07-19 05:30] LABS: BASOPHILS % (AUTO) 0 % (0-1); EOSINOPHILS # (AUTO) 0.1 X10'3 (0-0.9); EOSINOPHILS % (AUTO) 1.2 % (0-6); HEMOGLOBIN 10.3 g/dl (14.0-17.9); LYMPHOCYTES # (AUTO) 0.3 X10'3 (1.1-4.8); LYMPHOCYTES % (AUTO) 5.7 % (21-51); MEAN CORPUSCULAR HEMOGLOBIN 28.4 PG (27.0-31.0); MEAN CORPUSCULAR HGB CONC 33.2 % (33.0-36.5); MEAN CORPUSCULAR VOLUME 85.5 FL (78-98); MEAN PLATELET VOLUME 6.9 FL (7.4-10.4); MONOCYTES % (AUTO) 0.8 % (2-12); NEUTROPHILS # (AUTO) 5.4 X10'3 (1.8-7.7); NEUTROPHILS % (AUTO) 92.3 % (42-75); PLATELET COUNT 198 X10'3 (140-440); RED BLOOD COUNT 3.63 X10'6 (4.70-6.10); RED CELL DISTRIBUTION WIDTH 16.8 % (11.5-14.5); WHITE BLOOD COUNT 5.8 X10'3 (4.5-11.0)
[2017-07-19 05:41] LABS: INR 1.1 INR; PARTIAL THROMBOPLASTIN TIME 27 SECONDS (22-32); PROTHROMBIN TIME 11.2 SECONDS (9.0-12.0)
[2017-07-19 05:56] LABS: ALANINE AMINOTRANSFERASE 86 U/L (12-78); ALBUMIN 1.8 G/DL (3.4-5.0); ALBUMIN/GLOBULIN RATIO 0.4 (1.1-1.5); ALKALINE PHOSPHATASE 141 IU/L (46-116); ANION GAP 4 (8-16); ASPARTATE AMINO TRANSFERASE 34 U/L (10-37); BILIRUBIN,TOTAL 0.3 MG/DL (0.1-1.0); BLOOD UREA NITROGEN 26 MG/DL (7-18); BUN/CREATININE RATIO 28.3 (5.4-32.0); CALCIUM 8.9 MG/DL (8.5-10.1); CHLORIDE 106 MMOL/L (99-107); CREATININE 0.92 MG/DL (0.60-1.10); GLUCOSE 239 MG/DL (70-104); MAGNESIUM 1.7 MG/DL (1.5-2.4); PHOSPHORUS 3.2 MG/DL (2.3-4.5); POTASSIUM 4.7 MMOL/L (3.5-5.1); SODIUM 144 MMOL/L (135-145); TOTAL CARBON DIOXIDE 34.5 MMOL/L (24-32); TOTAL PROTEIN 5.9 G/DL (6.4-8.2); eGFR 83 ML/MIN
[2017-07-19 06:00] VITALS: BP 116/78
[2017-07-19] MEDS: K, MAG and/or Phos replacement - Verify level? MC SCH (08:00)
[2017-07-19] MEDS: montelukast 10mg tablet PO SCH (08:28)
[2017-07-19] MEDS: cefepime inj. 1 GM in dextrose 5%-water 50ml 50 ML IV SCH (08:28)
[2017-07-19] MEDS: lactobacillus rhamnosus 10,000 MMU CELLS/CAPSULE PO SCH ×2 (08:28→19:17)
[2017-07-19] MEDS: sennosides 8.6mg tablet PO SCH (08:28)
[2017-07-19] MEDS: docusate sod 100mg capsule PO SCH ×2 (08:29→19:17)
[2017-07-19] MEDS: furosemide 20MG tablet PO SCH (08:29)
[2017-07-19] MEDS: pantoprazole 40mg Tablet.DR PO SCH (08:29)
[2017-07-19] MEDS: loratadine 10mg tablet PO SCH (08:29)
[2017-07-19] MEDS: lisinopril 5mg tablet PO SCH (08:29)
[2017-07-19] MEDS: predniSONE 5mg tablet PO SCH ×2 (08:29→19:17)
[2017-07-19] MEDS: enoxaparin 40mg/0.4ml syringe SUBCUT SCH (08:30)
[2017-07-19] MEDS: triamcinolone acet 0.1% cream 15gm TP SCH (08:59)
[2017-07-19] MEDS: CITALOpram 10mg tablet PO SCH (08:59)
[2017-07-19] MEDS: insulin Lispro (HumaLOG) vial - multi-dose SQ SCH ×3 (09:45→18:56)
[2017-07-19 11:00] VITALS: BP 112/77
[2017-07-19 15:00] VITALS: BP 112/82
[2017-07-19 19:00] VITALS: BP 99/61
[2017-07-19] MEDS: insulin glargine (Lantus) pen - multi-dose SQ SCH (21:18)
[2017-07-19] MEDS: gabapentin 300mg capsule PO SCH (21:22)
[2017-07-19 23:00] VITALS: BP 112/81
[2017-07-20] MEDS: HYDROcodone/acetaminophen 10/325mg tab PO PRN ×3 (01:22→22:05)
[2017-07-20 03:00] VITALS: BP 109/72
[2017-07-20] MEDS: ipratropium 0.5 MG/2.5ML nebule IH SCH ×4 (03:58→19:16)
[2017-07-20 06:00] VITALS: BP 126/88
[2017-07-20 06:00] LABS: ALANINE AMINOTRANSFERASE 79 U/L (12-78); ALBUMIN/GLOBULIN RATIO 0.5 (1.1-1.5); ALKALINE PHOSPHATASE 139 IU/L (46-116); ANION GAP 4 (8-16); ASPARTATE AMINO TRANSFERASE 35 U/L (10-37); BILIRUBIN,TOTAL 0.3 MG/DL (0.1-1.0); BLOOD UREA NITROGEN 30 MG/DL (7-18); BUN/CREATININE RATIO 33.3 (5.4-32.0); CALCIUM 8.7 MG/DL (8.5-10.1); CHLORIDE 104 MMOL/L (99-107); GLUCOSE 166 MG/DL (70-104); MAGNESIUM 1.8 MG/DL (1.5-2.4); PHOSPHORUS 3.4 MG/DL (2.3-4.5); POTASSIUM 4.6 MMOL/L (3.5-5.1); SODIUM 142 MMOL/L (135-145); TOTAL CARBON DIOXIDE 34.2 MMOL/L (24-32); eGFR 86 ML/MIN
[2017-07-20 06:42] LABS: BASOPHILS % (AUTO) 0 % (0-1); EOSINOPHILS % (AUTO) 0.5 % (0-6); HEMATOCRIT 31.1 % (42.0-52.0); HEMOGLOBIN 10.5 g/dl (14.0-17.9); LYMPHOCYTES # (AUTO) 0.4 X10'3 (1.1-4.8); LYMPHOCYTES % (AUTO) 6.1 % (21-51); MEAN CORPUSCULAR HEMOGLOBIN 28.7 PG (27.0-31.0); MEAN CORPUSCULAR HGB CONC 33.7 % (33.0-36.5); MEAN CORPUSCULAR VOLUME 85.1 FL (78-98); MEAN PLATELET VOLUME 7.4 FL (7.4-10.4); MONOCYTES # (AUTO) 0.2 X10'3 (0-0.9); MONOCYTES % (AUTO) 2.8 % (2-12); NEUTROPHILS # (AUTO) 6.5 X10'3 (1.8-7.7); NEUTROPHILS % (AUTO) 90.6 % (42-75); PLATELET COUNT 218 X10'3 (140-440); RED BLOOD COUNT 3.66 X10'6 (4.70-6.10); RED CELL DISTRIBUTION WIDTH 16.1 % (11.5-14.5); WHITE BLOOD COUNT 7.1 X10'3 (4.5-11.0)
[2017-07-20] MEDS: K, MAG and/or Phos replacement - Verify level? MC SCH (08:00)
[2017-07-20] MEDS: sennosides 8.6mg tablet PO SCH (08:07)
[2017-07-20] MEDS: lactobacillus rhamnosus 10,000 MMU CELLS/CAPSULE PO SCH ×2 (08:07→19:20)
[2017-07-20] MEDS: predniSONE 5mg tablet PO SCH ×2 (08:07→19:19)
[2017-07-20] MEDS: cefepime inj. 1 GM in dextrose 5%-water 50ml 50 ML IV SCH (08:07)
[2017-07-20] MEDS: levoFLOXACIN 750MG TABLET PO SCH (08:07)
[2017-07-20] MEDS: loratadine 10mg tablet PO SCH (08:07)
[2017-07-20 08:08] LABS: INR 1.1 INR; PARTIAL THROMBOPLASTIN TIME 23 SECONDS (22-32); PROTHROMBIN TIME 10.9 SECONDS (9.0-12.0)
[2017-07-20] MEDS: furosemide 20MG tablet PO SCH (08:08)
[2017-07-20] MEDS: pantoprazole 40mg Tablet.DR PO SCH (08:08)
[2017-07-20] MEDS: montelukast 10mg tablet PO SCH (08:08)
[2017-07-20] MEDS: enoxaparin 40mg/0.4ml syringe SUBCUT SCH (08:09)
[2017-07-20] MEDS: lisinopril 5mg tablet PO SCH (08:10)
[2017-07-20] MEDS: CITALOpram 10mg tablet PO SCH (08:14)
[2017-07-20] MEDS: insulin Lispro (HumaLOG) vial - multi-dose SQ SCH ×3 (08:33→18:52)
[2017-07-20] MEDS: docusate sod 100mg capsule PO SCH ×2 (08:34→19:20)
[2017-07-20] MEDS ORDERED: CEFD300C3 PO (09:48)
[2017-07-20 11:00] VITALS: BP 140/96
[2017-07-20 15:00] VITALS: BP 104/69
[2017-07-20 19:00] VITALS: BP 112/68
[2017-07-20] MEDS: gabapentin 300mg capsule PO SCH (22:05)
[2017-07-20] MEDS: insulin glargine (Lantus) pen - multi-dose SQ SCH (22:09)
[2017-07-20 23:00] VITALS: BP 97/54
[2017-07-21 03:00] VITALS: BP 106/75
[2017-07-21] MEDS: ipratropium 0.5 MG/2.5ML nebule IH SCH (03:36)
[2017-07-21 06:00] VITALS: BP 107/76
[2017-07-21] MEDS: cefepime inj. 1 GM in dextrose 5%-water 50ml 50 ML IV SCH (07:16)
[2017-07-21] MEDS: sennosides 8.6mg tablet PO SCH (07:26)
[2017-07-21] MEDS: montelukast 10mg tablet PO SCH (07:27)
[2017-07-21] MEDS: furosemide 20MG tablet PO SCH (07:27)
[2017-07-21] MEDS: loratadine 10mg tablet PO SCH (07:27)
[2017-07-21] MEDS: CITALOpram 10mg tablet PO SCH (07:27)
[2017-07-21] MEDS: K, MAG and/or Phos replacement - Verify level? MC SCH (07:27)
[2017-07-21] MEDS: lisinopril 5mg tablet PO SCH (07:27)
[2017-07-21] MEDS: pantoprazole 40mg Tablet.DR PO SCH (07:27)
[2017-07-21] MEDS: predniSONE 5mg tablet PO SCH (07:27)
[2017-07-21] MEDS: lactobacillus rhamnosus 10,000 MMU CELLS/CAPSULE PO SCH (07:27)
[2017-07-21] MEDS: docusate sod 100mg capsule PO SCH (07:28)
[2017-07-21] MEDS: enoxaparin 40mg/0.4ml syringe SUBCUT SCH (07:33)
[2017-07-21] MEDS: insulin Lispro (HumaLOG) vial - multi-dose SQ SCH (07:44)
== END 2017-07-21 08:30 | disposition home health service (06) | DRG 720 ==
LOC: ER 21:24 → ED HOLD 07-13 01:31 → ICU 2S 07-13 02:03 → PCU 3S 07-16 05:30
PROVIDERS: ADMIT Internal Medicine Critical Care Medicine; ATTEND Family Medicine
PROC: 5A09357 Assistance with Respiratory Ventilation, Less than 24 Consecutive Hours, Continuous Positive Airway Pressure (ICD-10-PCS; 2017-07-13)
PROC: 06HM33Z Insertion of Infusion Device into Right Femoral Vein, Percutaneous Approach (ICD-10-PCS; 2017-07-13)
PROC: B54BZZA Ultrasonography of Right Lower Extremity Veins, Guidance (ICD-10-PCS; 2017-07-13)
PROC: 30233N1 Transfusion of Nonautologous Red Blood Cells into Peripheral Vein, Percutaneous Approach (ICD-10-PCS; principal; 2017-07-15)
DX: A41.9 Sepsis, unspecified organism (principal); R57.1 Hypovolemic shock; I50.33 Acute on chronic diastolic (congestive) heart failure; N17.9 Acute kidney failure, unspecified; J18.1 Lobar pneumonia, unspecified organism; E11.622 Type 2 diabetes mellitus with other skin ulcer; R65.21 Severe sepsis with septic shock; I11.0 Hypertensive heart disease with heart failure; J44.0 Chronic obstructive pulmonary disease with (acute) lower respiratory infection; R13.10 Dysphagia, unspecified; N39.0 Urinary tract infection, site not specified; B96.4 Proteus (mirabilis) (morganii) as the cause of diseases classified elsewhere; D64.9 Anemia, unspecified; E61.1 Iron deficiency; G89.29 Other chronic pain; J44.1 Chronic obstructive pulmonary disease with (acute) exacerbation; F41.9 Anxiety disorder, unspecified; K59.09 Other constipation; M54.9 Dorsalgia, unspecified; L03.116 Cellulitis of left lower limb; L03.115 Cellulitis of right lower limb; R06.03 Acute respiratory distress; D50.9 Iron deficiency anemia, unspecified; E87.6 Hypokalemia; L97.919 Non-pressure chronic ulcer of unspecified part of right lower leg with unspecified severity; Z60.2 Problems related to living alone; L97.929 Non-pressure chronic ulcer of unspecified part of left lower leg with unspecified severity; Z51.5 Encounter for palliative care; Z66 Do not resuscitate; Z87.11 Personal history of peptic ulcer disease; Z87.891 Personal history of nicotine dependence; Z99.81 Dependence on supplemental oxygen; Z88.0 Allergy status to penicillin; Z88.2 Allergy status to sulfonamides; Z91.012 Allergy to eggs; Z91.018 Allergy to other foods; Z79.899 Other long term (current) drug therapy; Z79.82 Long term (current) use of aspirin; Z56.0 Unemployment, unspecified
CPT/HCPCS: 36415; 36556; 71045; 71046; 73590; 76700; 80053; 80069; 80202; 81001; 82140; 82272; 82533; 82570; 82607; 82728; 82746; 82948; 83036; 83540; 83550; 83605; 83735; 84145; 84156; 84300; 84540; 85007; 85025; 85610; 85730; 86705; 86709; 86803; 86885; 86900; 86901; 86920; 87040; 87070; 87077; 87088; 87186; 87502; 87503; 93306; 93922; 93925; 93970; 94640; 94660; 94760; 96365; 96366; 96375; 97110; 97116; 97162; 97530; 99291; A4344; A4353; A4649; A6196; A6209; A6212; A6213; A6258; A6446; A6449; C1751; C1758; J0692; J1650; J1720; J1815; J1956; J2270; J2916; J3370; J3490; J7030; J7060; J7512; P9016

== ENCOUNTER 2017-08-06 14:52 | Emergency (ER) | payer MEDICAID ==
[~2017-08-06] VITALS: Ht 6248.4 cm; Wt 113.0 kg
[~2017-08-06 14:52] MED LIST changes: +CEFD300C3 PO; +DOCU-28 PO; +FURO-150 PO; +GABA-532 PO; +SENN-161 PO
[2017-08-06 16:21] LABS: BASOPHILS % (AUTO) 0.3 % (0-1); EOSINOPHILS # (AUTO) 0.1 X10'3 (0-0.9); EOSINOPHILS % (AUTO) 0.9 % (0-6); HEMATOCRIT 33.5 % (42.0-52.0); HEMOGLOBIN 11.4 g/dl (14.0-17.9); LYMPHOCYTES % (AUTO) 7.6 % (21-51); MEAN CORPUSCULAR HEMOGLOBIN 28.9 PG (27.0-31.0); MEAN CORPUSCULAR HGB CONC 33.9 % (33.0-36.5); MEAN CORPUSCULAR VOLUME 85.2 FL (78-98); MEAN PLATELET VOLUME 8.4 FL (7.4-10.4); MONOCYTES # (AUTO) 0.9 X10'3 (0-0.9); MONOCYTES % (AUTO) 6.6 % (2-12); NEUTROPHILS # (AUTO) 11.3 X10'3 (1.8-7.7); NEUTROPHILS % (AUTO) 84.6 % (42-75); PLATELET COUNT 155 X10'3 (140-440); RED BLOOD COUNT 3.93 X10'6 (4.70-6.10); RED CELL DISTRIBUTION WIDTH 17.5 % (11.5-14.5); WHITE BLOOD COUNT 13.4 X10'3 (4.5-11.0)
[2017-08-06 16:22] LABS: CLARITY,URINE CLOUDY (Clear); COLOR,URINE YELLOW (Yellow); GLUCOSE, URINE NEGATIVE (Neg); KETONES,URINE NEGATIVE (Neg); LEUKOCYTE ESTERASE ,URINE LARGE (Neg); NITRITES, URINE POSITIVE (Neg); OCCULT BLOOD,URINE SMALL (Neg); PH,URINE 8.5 (4.8-8.0); PROTEIN,URINE TRACE mg/dl (Neg); UROBILINOGEN,URINE 0.2 E.U/dL (0.2-1.0)
[2017-08-06 16:27] LABS: UA COLLECTION TYPE CLN CATCH MIDSTREAM
[2017-08-06 16:31] LABS: BACTERIA,URINE 4+ /HPF (Neg); HYALINE CASTS 0-3 /LPF (NEGATIVE); MUCUS STRANDS FEW /LPF (Neg); RBC,URINE 0-2 /HPF (0-2); SQUAMOUS EPITHELIAL CELL,UR FEW /LPF (FEW); WBC CLUMPS,URINE FEW /HPF (NEGATIVE)
[2017-08-06 16:58] LABS: ALANINE AMINOTRANSFERASE 58 U/L (12-78); ALBUMIN/GLOBULIN RATIO 0.9 (1.1-1.5); ALKALINE PHOSPHATASE 100 IU/L (46-116); ANION GAP 8 (8-16); ASPARTATE AMINO TRANSFERASE 30 U/L (10-37); BILIRUBIN,TOTAL 0.4 MG/DL (0.1-1.0); BLOOD UREA NITROGEN 40 MG/DL (7-18); BUN/CREATININE RATIO 26.1 (5.4-32.0); CALCIUM 9.7 MG/DL (8.5-10.1); CHLORIDE 103 MMOL/L (99-107); CREATININE 1.53 MG/DL (0.60-1.10); GLUCOSE 124 MG/DL (70-104); MAGNESIUM 1.8 MG/DL (1.5-2.4); POTASSIUM 5.2 MMOL/L (3.5-5.1); SODIUM 144 MMOL/L (135-145); TOTAL CARBON DIOXIDE 33.3 MMOL/L (24-32); TOTAL PROTEIN 6.3 G/DL (6.4-8.2); eGFR 46 ML/MIN
[2017-08-06] MEDS ORDERED: morphine 4 MG/ML inj SYRINge IV ONE (19:35)
[2017-08-06 21:53] VITALS: BP 109/77
== END 2017-08-06 22:00 | disposition short-term general hospital (02) ==
LOC: ER 14:52
DX: S32.048A Other fracture of fourth lumbar vertebra, initial encounter for closed fracture (principal); S32.058A Other fracture of fifth lumbar vertebra, initial encounter for closed fracture; S22.068A Other fracture of T7-T8 thoracic vertebra, initial encounter for closed fracture; S22.078A Other fracture of T9-T10 vertebra, initial encounter for closed fracture; N39.0 Urinary tract infection, site not specified; I11.0 Hypertensive heart disease with heart failure; I50.9 Heart failure, unspecified; J44.9 Chronic obstructive pulmonary disease, unspecified; E11.9 Type 2 diabetes mellitus without complications; Z56.0 Unemployment, unspecified; Z60.2 Problems related to living alone; Z88.0 Allergy status to penicillin; Z88.2 Allergy status to sulfonamides; Z79.899 Other long term (current) drug therapy; W18.39XA Other fall on same level, initial encounter; Y93.89 Activity, other specified; Y92.89 Other specified places as the place of occurrence of the external cause; Y99.8 Other external cause status
CPT/HCPCS: 36415; 71045; 72074; 72100; 72128; 72131; 80053; 81001; 82948; 83735; 83880; 84484; 85025; 87077; 87088; 87186; 93005; 96374; 99285; J2270; J7030

== ENCOUNTER 2017-08-21 14:14 | Inpatient (IN) | payer MEDICAID ==
[~2017-08-21] VITALS: Ht 188 cm; Wt 105.2 kg
[~2017-08-21 14:14] MED LIST changes: -CEFD300C3 PO
[2017-08-21 16:47] LABS: BASOPHILS % (AUTO) 0 % (0-1); EOSINOPHILS # (AUTO) 0.2 X10'3 (0-0.9); EOSINOPHILS % (AUTO) 1.4 % (0-6); HEMATOCRIT 33.3 % (42.0-52.0); LYMPHOCYTES # (AUTO) 0.5 X10'3 (1.1-4.8); LYMPHOCYTES % (AUTO) 3.6 % (21-51); MEAN CORPUSCULAR HEMOGLOBIN 29.4 PG (27.0-31.0); MEAN CORPUSCULAR HGB CONC 33.1 % (33.0-36.5); MEAN CORPUSCULAR VOLUME 88.7 FL (78-98); MEAN PLATELET VOLUME 8.2 FL (7.4-10.4); MONOCYTES # (AUTO) 0.3 X10'3 (0-0.9); MONOCYTES % (AUTO) 2.3 % (2-12); NEUTROPHILS # (AUTO) 11.7 X10'3 (1.8-7.7); NEUTROPHILS % (AUTO) 92.7 % (42-75); PLATELET COUNT 150 X10'3 (140-440); RED BLOOD COUNT 3.76 X10'6 (4.70-6.10); RED CELL DISTRIBUTION WIDTH 17.9 % (11.5-14.5); WHITE BLOOD COUNT 12.6 X10'3 (4.5-11.0)
[2017-08-21 16:59] LABS: INR 0.9 INR; PARTIAL THROMBOPLASTIN TIME 26 SECONDS (22-32); PROTHROMBIN TIME 9.7 SECONDS (9.0-12.0)
[2017-08-21 17:04] LABS: CLARITY,URINE CLEAR (Clear); COLOR,URINE YELLOW (Yellow); GLUCOSE, URINE NEGATIVE (Neg); KETONES,URINE NEGATIVE (Neg); LEUKOCYTE ESTERASE ,URINE NEGATIVE (Neg); NITRITES, URINE NEGATIVE (Neg); OCCULT BLOOD,URINE NEGATIVE (Neg); PH,URINE 5.5 (4.8-8.0); PROTEIN,URINE TRACE mg/dl (Neg); UROBILINOGEN,URINE 0.2 E.U/dL (0.2-1.0)
[2017-08-21 17:07] LABS: ALANINE AMINOTRANSFERASE 60 U/L (12-78); ALBUMIN 2.9 G/DL (3.4-5.0); ALBUMIN/GLOBULIN RATIO 0.7 (1.1-1.5); ALKALINE PHOSPHATASE 103 IU/L (46-116); ANION GAP 6 (8-16); ASPARTATE AMINO TRANSFERASE 26 U/L (10-37); BILIRUBIN,TOTAL 0.3 MG/DL (0.1-1.0); BLOOD UREA NITROGEN 46 MG/DL (7-18); CALCIUM 10.1 MG/DL (8.5-10.1); CHLORIDE 101 MMOL/L (99-107); CREATININE 2.19 MG/DL (0.60-1.10); GLUCOSE 146 MG/DL (70-104); MAGNESIUM 2.2 MG/DL (1.5-2.4); POTASSIUM 5.4 MMOL/L (3.5-5.1); SODIUM 140 MMOL/L (135-145); TOTAL CARBON DIOXIDE 32.9 MMOL/L (24-32); TOTAL PROTEIN 7.2 G/DL (6.4-8.2); eGFR 31 ML/MIN
[2017-08-21 17:15] LABS: RBC,URINE 0-2 /HPF (0-2); UA COLLECTION TYPE CLN CATCH MIDSTREAM; WBC,URINE 0-4 /HPF (0-4)
[2017-08-21 17:16] LABS: BACTERIA,URINE NONE SEEN /HPF (Neg); MUCUS STRANDS NONE SEEN /LPF (Neg); SQUAMOUS EPITHELIAL CELL,UR FEW /LPF (FEW)
[2017-08-21] MEDS ORDERED: normal saline 1000ML IV soln IV ONE (17:20)
[2017-08-21] MEDS ORDERED: CefTRIAXone 2gm/D5W 50ml 50 ML IV ONE (17:20)
[2017-08-21] MEDS ORDERED: sodium polystyrene sulfonate 15gm/60ml oral suspension PO ONE ×2 (17:30→17:50)
[2017-08-21] MEDS ORDERED: calcium chloride inj. 1,000 MG in normal saline 100ml IV soln 90 ML IV ONE (17:30)
[2017-08-21] MEDS ORDERED: potassium Cl 20 mEq SR tablet PO PRN ×2 (17:40)
[2017-08-21] MEDS ORDERED: mag hydrox/Alum hydrox/simeth 30ml oral suspension PO PRN (17:40)
[2017-08-21] MEDS ORDERED: magnesium 4gm in 100ml NS 100 ML IV PRN (17:40)
[2017-08-21] MEDS: K and/or MAG REPLACEMENT MC SCH (17:40)
[2017-08-21] MEDS ORDERED: magnesium hydroxide 30ml (MOM) UD suspension PO PRN (17:40)
[2017-08-21] MEDS ORDERED: dextrose ORAL solution 15 GM/59 ML bottle PO PRN ×2 (17:40)
[2017-08-21] MEDS ORDERED: diphenhydrAMINE 50 mg/ml inj IV PRN (17:40)
[2017-08-21] MEDS ORDERED: ondansetron/PF 4mg/2ml inj IV PRN (17:40)
[2017-08-21] MEDS ORDERED: magnesium Cl slow-release 64mg tablet PO PRN (17:40)
[2017-08-21] MEDS ORDERED: dextrose 50%-water 50ml dispensing syringe IV PRN ×2 (17:40)
[2017-08-21] MEDS ORDERED: glucagon, human recombinant 1mg kit SUBCUT PRN (17:40)
[2017-08-21] MEDS ORDERED: MESSAGE TO PHARMACY PO ONE (17:40)
[2017-08-21] MEDS ORDERED: magnesium 2GM in 50ml NS 50 ML IV PRN (17:40)
[2017-08-21] MEDS ORDERED: potassium Cl 40MEQ/NS 500ml 500 ML IV PRN ×2 (17:40)
[2017-08-21] MEDS ORDERED: morphine 4 MG/ML inj SYRINge IV PRN ×2 (17:40)
[2017-08-21] MEDS ORDERED: HYDROcodone/acetaminophen 5mg/325mg tablet PO PRN (17:40)
[2017-08-21] MEDS ORDERED: acetaminophen 325mg tablet PO PRN ×2 (17:40)
[2017-08-21] MEDS ORDERED: HYDROcodone/acetaminophen 5mg/325mg tablet PO ONE (17:45)
[2017-08-21] MEDS ORDERED: ipratropium 0.5 MG/2.5ML nebule IH PRN (17:45)
[2017-08-21] MEDS ORDERED: calcium gluconate inj. 1 GM in normal saline 100ml IV soln 90 ML IV ONE (17:50)
[2017-08-21] MEDS: heparin, porcine 5000 units/ml vial SQ SCH (19:12)
[2017-08-21] MEDS: docusate sod 100mg capsule PO SCH (19:19)
[2017-08-21] MEDS: cefepime 1GM/NS ADD-VANTAGE 100 ML IV SCH (19:36)
[2017-08-21] MEDS: normal saline 1000ml 1,000 ML IV SCH (20:00)
[2017-08-21] MEDS ORDERED: temazepam 15mg capsule PO PRN (21:00)
[2017-08-21] MEDS: insulin glargine (Lantus) pen - multi-dose SQ SCH (21:00)
[2017-08-21] MEDS: gabapentin 300mg capsule PO SCH (22:46)
[2017-08-22 00:05] VITALS: BP 146/97
[2017-08-22] MEDS: normal saline 1000ml 1,000 ML IV SCH ×3 (00:20→23:39)
[2017-08-22] MEDS: cefepime 1GM/NS ADD-VANTAGE 100 ML IV SCH ×4 (00:20→23:55)
[2017-08-22 05:22] LABS: BASOPHILS % (AUTO) 0.2 % (0-1); EOSINOPHILS # (AUTO) 0.1 X10'3 (0-0.9); EOSINOPHILS % (AUTO) 1.4 % (0-6); HEMATOCRIT 29.7 % (42.0-52.0); HEMOGLOBIN 9.8 g/dl (14.0-17.9); LYMPHOCYTES # (AUTO) 0.4 X10'3 (1.1-4.8); LYMPHOCYTES % (AUTO) 6.5 % (21-51); MEAN CORPUSCULAR VOLUME 87.9 FL (78-98); MEAN PLATELET VOLUME 8.1 FL (7.4-10.4); MONOCYTES # (AUTO) 0.2 X10'3 (0-0.9); MONOCYTES % (AUTO) 3.5 % (2-12); NEUTROPHILS # (AUTO) 5.3 X10'3 (1.8-7.7); NEUTROPHILS % (AUTO) 88.4 % (42-75); PLATELET COUNT 118 X10'3 (140-440); RED BLOOD COUNT 3.37 X10'6 (4.70-6.10); RED CELL DISTRIBUTION WIDTH 17.4 % (11.5-14.5)
[2017-08-22 05:43] LABS: ALANINE AMINOTRANSFERASE 63 U/L (12-78); ALBUMIN 2.3 G/DL (3.4-5.0); ALBUMIN/GLOBULIN RATIO 0.7 (1.1-1.5); ALKALINE PHOSPHATASE 84 IU/L (46-116); ANION GAP 4 (8-16); ASPARTATE AMINO TRANSFERASE 39 U/L (10-37); BILIRUBIN,TOTAL 0.2 MG/DL (0.1-1.0); BLOOD UREA NITROGEN 37 MG/DL (7-18); BUN/CREATININE RATIO 24.2 (5.4-32.0); CALCIUM 9.3 MG/DL (8.5-10.1); CHLORIDE 109 MMOL/L (99-107); CREATININE 1.53 MG/DL (0.60-1.10); GLUCOSE 94 MG/DL (70-104); MAGNESIUM 1.8 MG/DL (1.5-2.4); POTASSIUM 4.7 MMOL/L (3.5-5.1); SODIUM 145 MMOL/L (135-145); TOTAL CARBON DIOXIDE 31.8 MMOL/L (24-32); TOTAL PROTEIN 5.8 G/DL (6.4-8.2); eGFR 46 ML/MIN
[2017-08-22] MEDS: K and/or MAG REPLACEMENT MC SCH (06:39)
[2017-08-22 07:00] VITALS: BP 105/77
[2017-08-22] MEDS: docusate sod 100mg capsule PO SCH ×2 (07:33→20:33)
[2017-08-22] MEDS: heparin, porcine 5000 units/ml vial SQ SCH ×2 (07:33→20:34)
[2017-08-22] MEDS: CITALOpram 10mg tablet PO SCH (07:33)
[2017-08-22] MEDS: loratadine 10mg tablet PO SCH (07:34)
[2017-08-22] MEDS: sennosides 8.6mg tablet PO SCH (07:37)
[2017-08-22] MEDS: montelukast 10mg tablet PO SCH (07:37)
[2017-08-22] MEDS: lisinopril 5mg tablet PO SCH (07:37)
[2017-08-22] MEDS: pantoprazole 40mg Tablet.DR PO SCH (07:37)
[2017-08-22] MEDS: furosemide 20MG tablet PO SCH (07:37)
[2017-08-22] MEDS: UMECLIDINIUM VILANTEROL PO SCH (07:38)
[2017-08-22] MEDS: predniSONE 20 mg tablet PO SCH (11:03)
[2017-08-22] MEDS: HYDROcodone/acetaminophen 10/325mg tab PO PRN ×3 (11:04→20:33)
[2017-08-22 11:47] VITALS: BP 93/63
[2017-08-22 20:00] VITALS: BP 99/68
[2017-08-22] MEDS: insulin glargine (Lantus) pen - multi-dose SQ SCH (21:00)
[2017-08-22] MEDS: gabapentin 300mg capsule PO SCH (21:41)
[2017-08-23] VITALS (7 sets, daily range): BP systolic 84–123; BP diastolic 57–79
[2017-08-23] MEDS: normal saline 1000ml 1,000 ML IV SCH (03:45)
[2017-08-23 05:30] LABS: BASOPHILS % (AUTO) 0.2 % (0-1); EOSINOPHILS # (AUTO) 0.1 X10'3 (0-0.9); EOSINOPHILS % (AUTO) 1.6 % (0-6); HEMATOCRIT 25.4 % (42.0-52.0); HEMOGLOBIN 8.6 g/dl (14.0-17.9); LYMPHOCYTES # (AUTO) 0.4 X10'3 (1.1-4.8); LYMPHOCYTES % (AUTO) 8.9 % (21-51); MEAN CORPUSCULAR HEMOGLOBIN 29.2 PG (27.0-31.0); MEAN CORPUSCULAR HGB CONC 33.7 % (33.0-36.5); MEAN CORPUSCULAR VOLUME 86.6 FL (78-98); MEAN PLATELET VOLUME 7.3 FL (7.4-10.4); MONOCYTES # (AUTO) 0.2 X10'3 (0-0.9); MONOCYTES % (AUTO) 5.3 % (2-12); NEUTROPHILS # (AUTO) 3.5 X10'3 (1.8-7.7); PLATELET COUNT 122 X10'3 (140-440); RED BLOOD COUNT 2.94 X10'6 (4.70-6.10); RED CELL DISTRIBUTION WIDTH 17.2 % (11.5-14.5); WHITE BLOOD COUNT 4.2 X10'3 (4.5-11.0)
[2017-08-23 06:12] LABS: ALANINE AMINOTRANSFERASE 51 U/L (12-78); ALBUMIN 1.9 G/DL (3.4-5.0); ALBUMIN/GLOBULIN RATIO 0.6 (1.1-1.5); ALKALINE PHOSPHATASE 75 IU/L (46-116); ANION GAP 6 (8-16); ASPARTATE AMINO TRANSFERASE 32 U/L (10-37); BILIRUBIN,TOTAL 0.3 MG/DL (0.1-1.0); BLOOD UREA NITROGEN 25 MG/DL (7-18); BUN/CREATININE RATIO 21.7 (5.4-32.0); CALCIUM 8.4 MG/DL (8.5-10.1); CHLORIDE 110 MMOL/L (99-107); CREATININE 1.15 MG/DL (0.60-1.10); GLUCOSE 125 MG/DL (70-104); MAGNESIUM 1.7 MG/DL (1.5-2.4); PHOSPHORUS 3.1 MG/DL (2.3-4.5); POTASSIUM 4.1 MMOL/L (3.5-5.1); SODIUM 148 MMOL/L (135-145); TOTAL CARBON DIOXIDE 32.1 MMOL/L (24-32); TOTAL PROTEIN 5.1 G/DL (6.4-8.2); eGFR 64 ML/MIN
[2017-08-23] MEDS: cefepime 1GM/NS ADD-VANTAGE 100 ML IV SCH ×2 (07:51→15:21)
[2017-08-23] MEDS: CITALOpram 10mg tablet PO SCH (07:52)
[2017-08-23] MEDS: docusate sod 100mg capsule PO SCH ×2 (07:53→20:00)
[2017-08-23] MEDS: loratadine 10mg tablet PO SCH (07:53)
[2017-08-23] MEDS: furosemide 20MG tablet PO SCH (07:53)
[2017-08-23] MEDS: pantoprazole 40mg Tablet.DR PO SCH (07:53)
[2017-08-23] MEDS: montelukast 10mg tablet PO SCH (07:54)
[2017-08-23] MEDS: lisinopril 5mg tablet PO SCH (07:54)
[2017-08-23] MEDS: sennosides 8.6mg tablet PO SCH (07:54)
[2017-08-23] MEDS: heparin, porcine 5000 units/ml vial SQ SCH ×2 (07:55→21:47)
[2017-08-23] MEDS: HYDROcodone/acetaminophen 10/325mg tab PO PRN ×2 (07:55→18:52)
[2017-08-23] MEDS: predniSONE 20 mg tablet PO SCH (07:55)
[2017-08-23] MEDS: K and/or MAG REPLACEMENT MC SCH (08:00)
[2017-08-23] MEDS: UMECLIDINIUM VILANTEROL PO SCH (08:00)
[2017-08-23] MEDS: insulin Lispro (HumaLOG) vial - multi-dose SQ SCH ×2 (13:17→18:48)
[2017-08-23] MEDS: insulin glargine (Lantus) pen - multi-dose SQ SCH (21:43)
[2017-08-23] MEDS: gabapentin 300mg capsule PO SCH (21:46)
[2017-08-23] MEDS: lactobacillus rhamnosus 10,000 MMU CELLS/CAPSULE PO SCH (21:46)
[2017-08-24] MEDS: cefepime 1GM/NS ADD-VANTAGE 100 ML IV SCH ×3 (00:16→17:42)
[2017-08-24] MEDS ORDERED: VANCOMYCIN LEVEL IV ONE (02:30)
[2017-08-24 02:50] LABS: BASOPHILS % (AUTO) 0 % (0-1); EOSINOPHILS # (AUTO) 0.1 X10'3 (0-0.9); EOSINOPHILS % (AUTO) 1.5 % (0-6); HEMATOCRIT 25.8 % (42.0-52.0); HEMOGLOBIN 8.7 g/dl (14.0-17.9); LYMPHOCYTES # (AUTO) 0.5 X10'3 (1.1-4.8); LYMPHOCYTES % (AUTO) 10.7 % (21-51); MEAN CORPUSCULAR HEMOGLOBIN 29.1 PG (27.0-31.0); MEAN CORPUSCULAR HGB CONC 33.6 % (33.0-36.5); MEAN CORPUSCULAR VOLUME 86.6 FL (78-98); MEAN PLATELET VOLUME 7.1 FL (7.4-10.4); MONOCYTES # (AUTO) 0.2 X10'3 (0-0.9); MONOCYTES % (AUTO) 5.5 % (2-12); NEUTROPHILS # (AUTO) 3.6 X10'3 (1.8-7.7); NEUTROPHILS % (AUTO) 82.3 % (42-75); PLATELET COUNT 137 X10'3 (140-440); RED BLOOD COUNT 2.98 X10'6 (4.70-6.10); RED CELL DISTRIBUTION WIDTH 17.2 % (11.5-14.5); WHITE BLOOD COUNT 4.3 X10'3 (4.5-11.0)
[2017-08-24 03:05] LABS: ALANINE AMINOTRANSFERASE 52 U/L (12-78); ALBUMIN 1.9 G/DL (3.4-5.0); ALBUMIN/GLOBULIN RATIO 0.6 (1.1-1.5); ALKALINE PHOSPHATASE 94 IU/L (46-116); ANION GAP 4 (8-16); ASPARTATE AMINO TRANSFERASE 37 U/L (10-37); BILIRUBIN,TOTAL 0.3 MG/DL (0.1-1.0); BLOOD UREA NITROGEN 21 MG/DL (7-18); BUN/CREATININE RATIO 20.2 (5.4-32.0); CALCIUM 8.6 MG/DL (8.5-10.1); CHLORIDE 111 MMOL/L (99-107); CREATININE 1.04 MG/DL (0.60-1.10); GLUCOSE 193 MG/DL (70-104); MAGNESIUM 1.7 MG/DL (1.5-2.4); PHOSPHORUS 2.8 MG/DL (2.3-4.5); POTASSIUM 3.8 MMOL/L (3.5-5.1); SODIUM 148 MMOL/L (135-145); TOTAL CARBON DIOXIDE 33.5 MMOL/L (24-32); TOTAL PROTEIN 5.2 G/DL (6.4-8.2); eGFR 72 ML/MIN
[2017-08-24 03:07] LABS: VANCOMYCIN,TROUGH 27.3 UG/ML (6.0-14.0)
[2017-08-24] MEDS: docusate sod 100mg capsule PO SCH ×2 (06:48→20:00)
[2017-08-24] MEDS: sennosides 8.6mg tablet PO SCH (06:49)
[2017-08-24 06:56] VITALS: BP 103/69
[2017-08-24] MEDS: K and/or MAG REPLACEMENT MC SCH (07:47)
[2017-08-24] MEDS: lisinopril 5mg tablet PO SCH (08:00)
[2017-08-24] MEDS: insulin Lispro (HumaLOG) vial - multi-dose SQ SCH ×3 (08:37→18:52)
[2017-08-24] MEDS: montelukast 10mg tablet PO SCH (08:38)
[2017-08-24] MEDS: pantoprazole 40mg Tablet.DR PO SCH (08:38)
[2017-08-24] MEDS: lactobacillus rhamnosus 10,000 MMU CELLS/CAPSULE PO SCH ×2 (08:38→21:06)
[2017-08-24] MEDS: loratadine 10mg tablet PO SCH (08:38)
[2017-08-24] MEDS: predniSONE 20 mg tablet PO SCH ×2 (08:38→21:06)
[2017-08-24] MEDS: CITALOpram 10mg tablet PO SCH (08:39)
[2017-08-24] MEDS: heparin, porcine 5000 units/ml vial SQ SCH ×2 (08:39→21:08)
[2017-08-24] MEDS: furosemide 20MG tablet PO SCH (10:46)
[2017-08-24 11:00] VITALS: BP 107/73
[2017-08-24 11:17] VITALS: BP 103/69
[2017-08-24] MEDS: HYDROcodone/acetaminophen 10/325mg tab PO PRN ×3 (12:13→21:07)
[2017-08-24] MEDS: UMECLIDINIUM VILANTEROL PO SCH (12:46)
[2017-08-24] MEDS: vancomycin/NS 1 GM ADD-VANTAGE 250 ML IV SCH (15:13)
[2017-08-24 19:15] VITALS: BP 97/66
[2017-08-24] MEDS: insulin glargine (Lantus) pen - multi-dose SQ SCH (21:04)
[2017-08-24] MEDS: gabapentin 300mg capsule PO SCH (21:06)
[2017-08-24 23:30] VITALS: BP 104/68
[2017-08-25] MEDS: cefepime 1GM/NS ADD-VANTAGE 100 ML IV SCH ×3 (00:18→16:38)
[2017-08-25] MEDS: vancomycin/NS 1 GM ADD-VANTAGE 250 ML IV SCH ×2 (03:18→14:51)
[2017-08-25 05:23] LABS: BASOPHILS % (AUTO) 0 % (0-1); EOSINOPHILS % (AUTO) 0.7 % (0-6); HEMATOCRIT 26.3 % (42.0-52.0); HEMOGLOBIN 8.9 g/dl (14.0-17.9); LYMPHOCYTES # (AUTO) 0.3 X10'3 (1.1-4.8); MEAN CORPUSCULAR HEMOGLOBIN 29.2 PG (27.0-31.0); MEAN CORPUSCULAR HGB CONC 33.7 % (33.0-36.5); MEAN CORPUSCULAR VOLUME 86.6 FL (78-98); MEAN PLATELET VOLUME 7.3 FL (7.4-10.4); MONOCYTES # (AUTO) 0.3 X10'3 (0-0.9); MONOCYTES % (AUTO) 5.3 % (2-12); NEUTROPHILS # (AUTO) 4.3 X10'3 (1.8-7.7); PLATELET COUNT 155 X10'3 (140-440); RED BLOOD COUNT 3.03 X10'6 (4.70-6.10); RED CELL DISTRIBUTION WIDTH 16.7 % (11.5-14.5); WHITE BLOOD COUNT 4.9 X10'3 (4.5-11.0)
[2017-08-25 06:16] LABS: ALANINE AMINOTRANSFERASE 64 U/L (12-78); ALBUMIN 2.1 G/DL (3.4-5.0); ALBUMIN/GLOBULIN RATIO 0.6 (1.1-1.5); ALKALINE PHOSPHATASE 107 IU/L (46-116); ANION GAP 4 (8-16); ASPARTATE AMINO TRANSFERASE 45 U/L (10-37); BILIRUBIN,TOTAL 0.3 MG/DL (0.1-1.0); BLOOD UREA NITROGEN 21 MG/DL (7-18); BUN/CREATININE RATIO 19.1 (5.4-32.0); CALCIUM 8.8 MG/DL (8.5-10.1); CHLORIDE 107 MMOL/L (99-107); GLUCOSE 156 MG/DL (70-104); MAGNESIUM 1.6 MG/DL (1.5-2.4); PHOSPHORUS 3.3 MG/DL (2.3-4.5); POTASSIUM 4.8 MMOL/L (3.5-5.1); SODIUM 145 MMOL/L (135-145); TOTAL CARBON DIOXIDE 34.5 MMOL/L (24-32); TOTAL PROTEIN 5.5 G/DL (6.4-8.2); eGFR 68 ML/MIN
[2017-08-25 07:00] VITALS: BP 144/94
[2017-08-25] MEDS: docusate sod 100mg capsule PO SCH ×2 (07:44→21:13)
[2017-08-25] MEDS: sennosides 8.6mg tablet PO SCH (07:44)
[2017-08-25] MEDS: loratadine 10mg tablet PO SCH (07:45)
[2017-08-25] MEDS: furosemide 20MG tablet PO SCH (07:45)
[2017-08-25] MEDS: montelukast 10mg tablet PO SCH (07:45)
[2017-08-25] MEDS: predniSONE 20 mg tablet PO SCH ×2 (07:45→21:13)
[2017-08-25] MEDS: lisinopril 5mg tablet PO SCH (07:45)
[2017-08-25] MEDS: pantoprazole 40mg Tablet.DR PO SCH (07:45)
[2017-08-25] MEDS: lactobacillus rhamnosus 10,000 MMU CELLS/CAPSULE PO SCH ×2 (07:45→21:13)
[2017-08-25] MEDS: CITALOpram 10mg tablet PO SCH (07:46)
[2017-08-25] MEDS: heparin, porcine 5000 units/ml vial SQ SCH ×2 (07:46→21:11)
[2017-08-25] MEDS: K and/or MAG REPLACEMENT MC SCH (08:00)
[2017-08-25] MEDS: UMECLIDINIUM VILANTEROL PO SCH (09:19)
[2017-08-25] MEDS: insulin Lispro (HumaLOG) vial - multi-dose SQ SCH ×3 (09:28→19:13)
[2017-08-25 10:41] VITALS: BP 132/84
[2017-08-25 20:00] VITALS: BP 126/79
[2017-08-25] MEDS: insulin glargine (Lantus) pen - multi-dose SQ SCH (21:11)
[2017-08-25] MEDS: gabapentin 300mg capsule PO SCH (21:13)
[2017-08-25] MEDS: HYDROcodone/acetaminophen 10/325mg tab PO PRN (21:14)
[2017-08-26] VITALS: BP 129/83
[2017-08-26] MEDS ORDERED: VANCOMYCIN LEVEL IV ONE (02:30)
[2017-08-26] MEDS: cefepime 1GM/NS ADD-VANTAGE 100 ML IV SCH ×3 (02:33→16:58)
[2017-08-26] MEDS: HYDROcodone/acetaminophen 10/325mg tab PO PRN ×3 (02:34→19:25)
[2017-08-26 03:24] LABS: BASOPHILS % (AUTO) 0.2 % (0-1); EOSINOPHILS # (AUTO) 0.1 X10'3 (0-0.9); EOSINOPHILS % (AUTO) 1.3 % (0-6); HEMATOCRIT 26.7 % (42.0-52.0); HEMOGLOBIN 9.1 g/dl (14.0-17.9); LYMPHOCYTES # (AUTO) 0.5 X10'3 (1.1-4.8); LYMPHOCYTES % (AUTO) 9.7 % (21-51); MEAN CORPUSCULAR HEMOGLOBIN 29.3 PG (27.0-31.0); MEAN CORPUSCULAR VOLUME 86.2 FL (78-98); MEAN PLATELET VOLUME 6.9 FL (7.4-10.4); MONOCYTES # (AUTO) 0.3 X10'3 (0-0.9); MONOCYTES % (AUTO) 6.1 % (2-12); NEUTROPHILS % (AUTO) 82.7 % (42-75); PLATELET COUNT 179 X10'3 (140-440); RED BLOOD COUNT 3.09 X10'6 (4.70-6.10); RED CELL DISTRIBUTION WIDTH 17.3 % (11.5-14.5); WHITE BLOOD COUNT 4.9 X10'3 (4.5-11.0)
[2017-08-26 03:36] LABS: ALANINE AMINOTRANSFERASE 71 U/L (12-78); ALBUMIN 2.2 G/DL (3.4-5.0); ALBUMIN/GLOBULIN RATIO 0.6 (1.1-1.5); ALKALINE PHOSPHATASE 127 IU/L (46-116); ANION GAP 3 (8-16); ASPARTATE AMINO TRANSFERASE 56 U/L (10-37); BILIRUBIN,TOTAL 0.3 MG/DL (0.1-1.0); BLOOD UREA NITROGEN 21 MG/DL (7-18); BUN/CREATININE RATIO 21.4 (5.4-32.0); CALCIUM 8.9 MG/DL (8.5-10.1); CHLORIDE 105 MMOL/L (99-107); CREATININE 0.98 MG/DL (0.60-1.10); GLUCOSE 130 MG/DL (70-104); SODIUM 141 MMOL/L (135-145); TOTAL CARBON DIOXIDE 33.2 MMOL/L (24-32); TOTAL PROTEIN 5.7 G/DL (6.4-8.2); eGFR 78 ML/MIN
[2017-08-26 03:37] LABS: MAGNESIUM 1.8 MG/DL (1.5-2.4); PHOSPHORUS 2.8 MG/DL (2.3-4.5)
[2017-08-26] MEDS: vancomycin/NS 1 GM ADD-VANTAGE 250 ML IV SCH ×2 (03:39→15:10)
[2017-08-26 03:46] LABS: VANCOMYCIN,TROUGH 21.2 UG/ML (6.0-14.0)
[2017-08-26 06:00] VITALS: BP 135/85
[2017-08-26] MEDS: montelukast 10mg tablet PO SCH (07:30)
[2017-08-26] MEDS: furosemide 20MG tablet PO SCH (07:30)
[2017-08-26] MEDS: predniSONE 20 mg tablet PO SCH ×2 (07:30→19:21)
[2017-08-26] MEDS: docusate sod 100mg capsule PO SCH ×2 (07:30→19:21)
[2017-08-26] MEDS: lactobacillus rhamnosus 10,000 MMU CELLS/CAPSULE PO SCH ×2 (07:30→19:21)
[2017-08-26] MEDS: sennosides 8.6mg tablet PO SCH (07:30)
[2017-08-26] MEDS: lisinopril 5mg tablet PO SCH (07:30)
[2017-08-26] MEDS: loratadine 10mg tablet PO SCH (07:30)
[2017-08-26] MEDS: pantoprazole 40mg Tablet.DR PO SCH (07:30)
[2017-08-26] MEDS: CITALOpram 10mg tablet PO SCH (07:31)
[2017-08-26] MEDS: heparin, porcine 5000 units/ml vial SQ SCH ×2 (07:31→19:19)
[2017-08-26] MEDS: K and/or MAG REPLACEMENT MC SCH (08:00)
[2017-08-26] MEDS: UMECLIDINIUM VILANTEROL PO SCH (08:07)
[2017-08-26] MEDS: insulin Lispro (HumaLOG) vial - multi-dose SQ SCH ×3 (09:08→19:17)
[2017-08-26 11:00] VITALS: BP 130/96
[2017-08-26 20:00] VITALS: BP 135/81
[2017-08-26] MEDS: insulin glargine (Lantus) pen - multi-dose SQ SCH (21:00)
[2017-08-26] MEDS: gabapentin 300mg capsule PO SCH (22:33)
[2017-08-27] VITALS: BP 105/71
[2017-08-27] MEDS: cefepime 1GM/NS ADD-VANTAGE 100 ML IV SCH ×3 (00:29→16:40)
[2017-08-27] MEDS: vancomycin/NS 1 GM ADD-VANTAGE 250 ML IV SCH (02:24)
[2017-08-27] MEDS: K and/or MAG REPLACEMENT MC SCH (07:15)
[2017-08-27] MEDS: lisinopril 5mg tablet PO SCH (07:29)
[2017-08-27] MEDS: CITALOpram 10mg tablet PO SCH (07:29)
[2017-08-27] MEDS: pantoprazole 40mg Tablet.DR PO SCH (07:30)
[2017-08-27] MEDS: predniSONE 20 mg tablet PO SCH ×2 (07:30→20:24)
[2017-08-27] MEDS: loratadine 10mg tablet PO SCH (07:30)
[2017-08-27] MEDS: sennosides 8.6mg tablet PO SCH (07:30)
[2017-08-27] MEDS: docusate sod 100mg capsule PO SCH ×2 (07:30→20:24)
[2017-08-27] MEDS: montelukast 10mg tablet PO SCH (07:30)
[2017-08-27] MEDS: lactobacillus rhamnosus 10,000 MMU CELLS/CAPSULE PO SCH ×2 (07:30→20:24)
[2017-08-27] MEDS: heparin, porcine 5000 units/ml vial SQ SCH ×2 (07:31→20:23)
[2017-08-27 08:00] VITALS: BP 128/86
[2017-08-27] MEDS: UMECLIDINIUM VILANTEROL PO SCH (08:21)
[2017-08-27] MEDS: furosemide 20MG tablet PO SCH (09:10)
[2017-08-27] MEDS: insulin Lispro (HumaLOG) vial - multi-dose SQ SCH ×3 (11:08→20:08)
[2017-08-27 12:00] VITALS: BP 130/84
[2017-08-27] MEDS: HYDROcodone/acetaminophen 10/325mg tab PO PRN ×2 (14:18→20:24)
[2017-08-27] MEDS ORDERED: VANCOMYCIN LEVEL IV ONE (14:30)
[2017-08-27 20:00] VITALS: BP 140/83
[2017-08-27] MEDS: gabapentin 300mg capsule PO SCH (20:24)
[2017-08-27] MEDS: insulin glargine (Lantus) pen - multi-dose SQ SCH (22:24)
[2017-08-28] VITALS: BP 133/57
[2017-08-28] MEDS: cefepime 1GM/NS ADD-VANTAGE 100 ML IV SCH ×3 (00:54→16:00)
[2017-08-28] MEDS: HYDROcodone/acetaminophen 10/325mg tab PO PRN ×2 (04:05→17:02)
[2017-08-28 07:00] VITALS: BP 135/57
[2017-08-28] MEDS: UMECLIDINIUM VILANTEROL PO SCH (07:53)
[2017-08-28] MEDS: K and/or MAG REPLACEMENT MC SCH (08:00)
[2017-08-28] MEDS: predniSONE 20 mg tablet PO SCH (08:09)
[2017-08-28] MEDS: lisinopril 5mg tablet PO SCH (08:09)
[2017-08-28] MEDS: CITALOpram 10mg tablet PO SCH (08:09)
[2017-08-28] MEDS: montelukast 10mg tablet PO SCH (08:09)
[2017-08-28] MEDS: lactobacillus rhamnosus 10,000 MMU CELLS/CAPSULE PO SCH (08:09)
[2017-08-28] MEDS: sennosides 8.6mg tablet PO SCH (08:09)
[2017-08-28] MEDS: furosemide 20MG tablet PO SCH (08:10)
[2017-08-28] MEDS: heparin, porcine 5000 units/ml vial SQ SCH (08:10)
[2017-08-28] MEDS: docusate sod 100mg capsule PO SCH (08:10)
[2017-08-28] MEDS: pantoprazole 40mg Tablet.DR PO SCH (08:10)
[2017-08-28] MEDS: loratadine 10mg tablet PO SCH (08:11)
[2017-08-28] MEDS: insulin Lispro (HumaLOG) vial - multi-dose SQ SCH ×2 (10:20→14:30)
[2017-08-28 12:00] VITALS: BP 133/82
== END 2017-08-28 17:16 | DRG 720 ==
LOC: ER 14:15 → ED HOLD 17:39 → MED 3N 21:54 → SUR 3N 08-24 16:51
PROVIDERS: ADMIT Family Medicine; ATTEND Internal Medicine
DX: A41.9 Sepsis, unspecified organism (principal); N17.0 Acute kidney failure with tubular necrosis; E87.2 Acidosis; I11.0 Hypertensive heart disease with heart failure; I27.81 Cor pulmonale (chronic); Z66 Do not resuscitate; I50.20 Unspecified systolic (congestive) heart failure; E87.5 Hyperkalemia; E11.9 Type 2 diabetes mellitus without complications; E86.0 Dehydration; F32.9 Major depressive disorder, single episode, unspecified; J44.9 Chronic obstructive pulmonary disease, unspecified; K21.9 Gastro-esophageal reflux disease without esophagitis; L03.115 Cellulitis of right lower limb; L03.116 Cellulitis of left lower limb; Z74.01 Bed confinement status; Z87.11 Personal history of peptic ulcer disease; Z90.49 Acquired absence of other specified parts of digestive tract; Z87.891 Personal history of nicotine dependence; Z88.0 Allergy status to penicillin; Z91.012 Allergy to eggs
CPT/HCPCS: 36415; 80053; 80202; 81001; 82948; 83605; 83735; 84100; 84145; 85025; 85610; 85730; 87040; 87070; 93005; 93922; 93970; 94640; 94760; 97110; 97116; 97162; 97530; 99285; A4649; A6196; A6212; A6213; A6258; A6446; J0610; J0692; J0696; J1644; J1815; J3370; J7030; J7512